=== PATIENT | male | born 1975 | race Caucasian/White ===

== ENCOUNTER 2025-02-23 13:19 | Outpatient (CLI) | payer BC, SELFPAY ==
--- NOTE | 2025-02-23 13:40 | XR_ITS ---
PROCEDURE INFORMATION: Exam: XR Chest Exam date and time: 02/23/2025 1:42 PM Age: 49 years old Clinical indication: Chest wall pain; Additional info: Costochondritis. Fall, pain on left anterior lower chest wall TECHNIQUE: Imaging protocol: Radiologic exam of the chest. Views: 2 views. PA and Lateral COMPARISON: No relevant prior studies available. FINDINGS: Tubes, catheters and devices: None. Lungs: Evidence for calcified lung granuloma in the left chest. The lungs appear otherwise clear without pulmonary venous congestion. Pleural spaces: No pleural effusion. No pneumothorax. Heart/Mediastinum: Left hilar, mediastinum calcified lymph nodes. The mediastinum appears otherwise unremarkable. Bones/joints: No acute bony abnormality identified. IMPRESSION: No evidence for an acute cardiopulmonary process.
== END 2025-02-23 23:59 | disposition home or self-care (01) ==
LOC: RAD 13:24
PROVIDERS: PCP Nurse Practitioner Family; Visit Provider Physician Assistant
DX: R07.89 Other chest pain (principal)
CPT/HCPCS: 71046

== ENCOUNTER 2025-07-12 09:31 | Emergency (ER) | payer BC, SELFPAY ==
--- OUTSIDE RECORDS SUMMARY | 2025-07-08 15:45 | XMS_ITS | Encounter Summary ---
[facility] Address [address] [place] [address] Care Team Providers Care Support Coordinator Name Role Phone Lizz Cotton APRN Primary Care Provider Reason for Visit * Reason Comments Hypertension Atrial Fibrillation Encounter Details Date Type Department Care Team (Late st Contact Info) Description 07/08/2025 3:45 PM EDT Office Visit [facility] CARDIOLOG[facility] [address] [facility] [place] [address] [place] [address] Terell Julio MD [address] [place] [address] Primary hypertension (Primary Dx); Mixed hyperlipidemia; Palpitations Social History Tobacco Use Types Packs/Day Years Used Date Smoking Tobacco: Former Cigarettes Q uit: 11/13/2013 Passive Smoke Exposure: Past Smokeless Tobacco: Never Comments:vape Alcohol Use Standard Drinks/Week Comments Not Currently 0 (1 standard drink = 0.6 oz pur e alcohol) quit in 2018 PHQ-2 Answer Date Recorded Retired PHQ-9: Brief Depression Severity Measure Score 0 12/11/2022 PHQ-2 Answer Date Recorded Retired PHQ-9: Brief Depression Severity Measure Score 0 12/11/2022 Sex and Gender Information Value Date Recorded Sex Assigned at Not on file Legal Sex Male 12:00 PM EDT Gender Identity Not on file Sexual Orientation Not on file Travel History Travel Start Travel End [place] 06/07/2025 07/08/2025 documented as of this encounter Last Filed Vital Signs Vital Sign Reading Time Taken Comments Blood Pressure 132/76 07/08/2025 3:49 PM EDT Pulse 97 07/08/2025 3:49 PM EDT Temperature - - Respiratory Rate - - Oxygen Saturation 99% 07/08/2025 3:49 PM EDT Inhaled Oxygen Concentration - - Weight 79.2 kg (174 lb 8 oz) 07/08/2025 3:49 PM EDT Height 172.7 cm (5' 8 ) 07/08/2025 3:49 PM EDT Body Mass Index 26.53 07/08/2025 3:49 PM EDT documented in this encounter Progress Notes * Terell Julio MD - 07/08/2025 3:45 PM EDT [facility] Cardiology Consultation H&P Atilio Brody Andrey [address] [place] [address] VISIT DATE: 07/08/25 PCP: Lizz Cotton, [place] [address] [facility] [address] [facility] [address] IDENTIFICATION: A 50 y.o. male [employer] employee Previous [employer] patient PROBLEM LIST: Paroxysmal Atrial fibrillation 2009 per [facility]. Diltiazem. 12/30 ([facility]) stress echocardiogram [facility]: Echocardiogram shows baseline normal heart structure (mild concentric LVH). No evidence of myocardial ischemia per echo/ekg criteria. 04/04 echo EF 60% IR Hyperlipidemia 01/01 195/134/36/135 Nicotine addiction- vaping Significant family history of CAD/MA in mother - 30s Father had multiple MIs. GERD Diverticulosis covid 19 09/03 not hospitalized- anorexia following CC: Chief Complaint Patient presents with Hypertension Atrial Fibrillation Allergies Allergies Allergen Reactions Azithromycin Other (See Comments) Childhood Erythromycin Base Other (See Comments) Childhood Pravastatin Other (See Comments) Muscle cramp Current Medications Current Outpatient Medications: aspirin 81 MG EC tablet, Take 1 tablet by mouth Daily., Disp: , Rfl: buPROPion XL (WELLBUTRIN XL) 300 MG 24 hr tablet, Take 1 tablet by mouth Every Morning., Disp: 90 tablet, Rfl: 3 dilTIAZem CD (Cartia XT) 180 MG 24 hr capsule, Take 1 capsule by mouth Daily., Disp: 90 capsule, Rfl: 3 Magnesium Oxide -Mg Supplement 400 (240 Mg) MG tablet, TAKE 1 TABLET BY MOUTH DAILY, Disp: 90 tablet, Rfl: 0 pantoprazole (PROTONIX) 40 MG EC tablet, TAKE 1 TABLET BY MOUTH DAILY, Disp: 90 tablet, Rfl: 1 History of Present Illness HPI Atilio Balderas is a 50 y.o. year old male with the above mentioned PMH who presents for follow-up. Had a viral illness recently No cardiac sxs Vitals: 07/08/25 1549 BP: 132/76 BP Location: Left arm Patient Position: Sitting Cuff Size: Adult Pulse: 97 SpO2: 99% Weight: 79.2 kg (174 lb 8 oz) Height: 172.7 cm (68 ) Body mass index is 26.53 kg/m??. PHYSICAL EXAMINATION: Constitutional: Appearance: Healthy appearance. Not in distress. Neck: Vascular: No JVR. JVD normal. Pulmonary: Effort: Pulmonary effort is normal. Breath sounds: Normal breath sounds. No wheezing. No rhonchi. No rales. Chest: Chest wall: Not tender to palpatation. Cardiovascular: PMI at left midclavicular line. Normal rate. Regular rhythm. Normal S1. Normal S2. Murmurs: There is a scratchy mid to late systolic murmur. No gallop. No click. No rub. Pulses: Intact distal pulses. Edema: Peripheral edema absent. Abdominal: General: Bowel sounds are normal. Palpations: Abdomen is soft. Tenderness: There is no abdominal tenderness. Musculoskeletal: Normal range of motion. General: No tenderness. Skin: General: Skin is warm and dry. Neurological: General: No focal deficit present. Mental Status: Alert and oriented to person, place and time. Diagnostic Data: Procedures Lab Results Component Value Date CHLPL 195 12/20/2020 TRIG 134 12/20/2020 HDL 36 (L) 12/20/2020 Lab Results Component Value Date GLUCOSE 101 (H) 09/12/2022 BUN 16 09/12/2022 CREATININE 1.15 09/12/2022 NA 142 09/12/2022 K 4.2 09/12/2022 CL 106 09/12/2022 CO2 23 09/12/2022 Lab Results Component Value Date HGBA1C 5.6 12/20/2020 Lab Results Component Value Date WBC 4.8 09/12/2022 HGB 13.8 09/12/2022 HCT 40.4 09/12/2022 PLT 230 09/12/2022 ASSESSMENT: Diagnosis Plan 1. Primary hypertension 2. Mixed hyperlipidemia 3. Palpitations PLAN: Hypertension controlled currently diltiazem he will need to follow his blood pressure at least weekly PACs on concomitant protonix with equivocal history of atrial fibrillation would recommend blood pressure control and magnesium supplementation Mixed dyslipidemia would recommend cardiac calcium scoring No ref. provider found, thank you for referring Mr. Balderas for evaluation. I have forwarded my electronically generated recommendations to you for review. Please do not hesitate to call with any questions. Terell Julio MD, [facility] documented in this encounter Plan of Treatment Upcoming Encounters Date Type Department Care Team (Late st Contact Info) Description 11/24/2026 3:30 PM EST Office Visit [facility] C[facility]IOLOG[facility] [address] [facility] [place] [address] Terell Julio MD [facility] [place] [id number] documented as of this encounter Visit Diagnoses Diagnosis Primary hypertension- Primary Unspecified essential hypertension Mixed hyperlipidemia Palpitations documented in this encounter Care Teams Support Coordinator Relationship Specialty Start Date End Date Lizz Cotton APRN [address] [facility] [address] [place] [address] PCP - General Nurse Practitioner 07/08/25 documented as of this encounter
[2025-07-12 09:33] VITALS: BP 145/94; PULSE 84; RESP 17; TEMP 37.3; O2SAT 97; BMI 25.8
--- OUTSIDE RECORDS SUMMARY | 2025-07-12 10:07 | XMS_ITS | Encounter Summary ---
Author Organization [facility] Address [address] [place] [address] Care Team Providers Care Imaging Analyst Name Role Phone Lizz Cotton Y[place] Primary Care Provider [phone] Encounter Details Date Type Department Care Team (Latest Contact Info) Description 07/08/2025 Travel Social History Tobacco Use Types Packs/Day Years [...] file Travel History Travel Start Travel End [place] 06/07/2025 07/08/2025 documented as of this encounter Plan of Treatment Upcoming Encounters Date Type Department Care Team (Late st Contact Info) Description 11/24/2026 3:30 PM EST Office Visit [facility] CARDIOLOGY [address] [facility] [place] [address] Terell Julio MD [address] [facility] [address] [place] [address] documented as of this encounter Visit Diagnoses Not on filedocumented in this encounter Care Teams Imaging Analyst Relationship Specialty Start Date End Date Lizz Cotton APRN [address] [place] [address] PCP - General Nurse Practitioner 07/08/25 documented as of this encounter
--- OUTSIDE RECORDS SUMMARY | 2025-07-12 10:07 | XMS_ITS | Encounter Summary ---
[facility] Address [address] [place] [address] Care Team Providers Care Curator Name Role Phone Lizz Cotton Y[place] Primary Care Provider [phone] Reason for Visit * Reason Comments Med Refill Encounter Details Date Type Department Care Team (Late st Contact Info) Description 02/15/2025 Refill [facility] [address] [place] [address] Brenda Núñez PA [address] [place] [address] Atrial fibrillation, unspecified type Social History Tobacco Use Types Packs/Day Years [...] file Travel History Travel Start Travel End [place] 06/07/2025 07/08/2025 documented as of this encounter Miscellaneous Notes * Telephone Encounter - Nasrin Jenkins RegSched Rep - 02/17/2025 9:23 AM EDT SPOKE WITH PATIENT, HE STATED THAT THE REQUESTED MEDICATION ISNT PRESCRIBED BY BRENDA AND THE HE ISNO LONGER A PATIENT WITH THIS OFFICE documented in this encounter Plan of Treatment Upcoming Encounters Date Type Department Care Team (Late st Contact Info) Description 11/24/2026 3:30 PM EST Office Visit [facility] CARDIOLOGY [address] [place] [address] [place] [address] Terell Julio MD [address] [facility] [address] [facility] [address] [place] [address] documented as of this encounter Visit Diagnoses Diagnosis Atrial fibrillation, unspecified type documented in this encounter Care Teams Curator Relationship Specialty Start Date End Date Lizz Cotton APRN [address] [place] [address] [address] [place] [address] PCP - General Nurse Practitioner 07/08/25 documented as of this encounter
--- OUTSIDE RECORDS SUMMARY | 2025-07-12 10:07 | XMS_ITS | Clinical Summary ---
[facility] Address [address] [place] [address] Care Team Providers Care Health Insurance Agent Name Role Phone Lizz Cotton [place] Primary Care Provider [phone] Allergies Active Allergy Reactions Criticality Noted Date Comments Azithromycin Other (See Comments) 10/28/2014 Childhood Erythromycin Base Other (See Comments) 12/15/19 Childhood Pravastatin Other (See Comments) 12/14/2020 Muscle cramp Medications aspirin 81 MG EC tablet Take 1 tablet by mouth Daily. Active buPROPion XL (WELLBUTRIN XL) 300 MG 24 hr tabletIndication s:Depression with anxiety Take 1 tablet by mouth Every Morning. 90 tablet 3 06/10/2023 Active dilTIAZem CD (Cartia XT) 180 MG 24 hr capsuleIndicatio ns:Atrial fibrillation, unspecified type Take 1 capsule by mouth Daily. 90 capsule 3 06/10/2023 Active pantoprazole (PROTONIX) 40 MG EC tabletIndication s:Gastroesophage al reflux disease, unspecified whether esophagitis present TAKE 1 TABLET BY MOUTH DAILY 90 tablet 1 09/07/2023 Active Magnesium Oxide -Mg Supplement 400 (240 Mg) MG tablet TAKE 1 TABLET BY MOUTH DAILY 90 tablet 04/06/2024 Active Active Problems Problem Noted Date Diagnosed Date Atrial fibrillation 12/14/2020 Gastroesophageal reflux disease 12/14/2020 Depression with anxiety 12/14/2020 Encounters Date Type Department Care Team Description 07/08/2025 3:45 PM EDT Office Visit [facility] CARDIOLOGY [address] [facility] [place] [address] Terell Julio MD Primary hypertension (Primary Dx); Mixed hyperlipidemia; Palpitations 07/08/2025 Travel 2025 Travel from Last 3 Months Immunizations Immunization Administration Dates Next Due Tdap 10/05/2017 Family History Medical History Relation Name Comments Heart disease Brother Heart attack Father Heart disease Father Heart failure Father Hypertension Father Heart attack Mother Hyperlipidemia Mother Hypertension Mother Relation Name Status Comments Brother Alive Father Mother Social History Tobacco Use Types Packs/Day Years Used Date Smoking Tobacco: Former Cigarettes Q uit: 11/13/2013 Passive Smoke Exposure: Past Smokeless Tobacco: Never Tobacco Cessation:Counseling Given: Not Answered Comments:vape Alcohol Use Standard Drinks/Week Comments Not [...] file Travel History Travel Start Travel End [place] 06/07/2025 07/08/2025 Last Filed Vital Signs Vital Sign Reading Time Taken Comments Blood Pressure 132/76 07/08/2025 3:49 PM EDT Pulse 97 07/08/2025 3:49 PM EDT Temperature 36.5 C (97.7 F) 06/10/2023 11:32 AM EDT Respiratory Rate 16 06/10/2023 11:32 AM EDT Oxygen Saturation 99% 07/08/2025 3:49 PM EDT Inhaled Oxygen Concentration - - Weight 79.2 kg (174 lb 8 oz) 07/08/2025 3:49 PM EDT Height 172.7 cm (5' 8 ) 07/08/2025 3:49 PM EDT Body Mass Index 26.53 07/08/2025 3:49 PM EDT Plan of Treatment Upcoming Encounters Date Type Department Care Team (Late st Contact Info) Description 11/24/2026 3:30 PM EST Office Visit [facility] CARDIOLOGY [address] [place] [address] Terell Julio MD [address] [facility] [address] [place] [address] Health Maintenance Due Date Last Done Comments COLOGUARD 2022 10/14/2016 COLON CANCER SCREENING 5 YEA R SIGMOIDOSCOPY 20[address] CT COLONOGRAPHY 2022 FECAL OCCULT BLOOD TEST 2022 FIT Testing (1 year) 2022 ANNUAL PHYSICAL 06/12/2023 06/12/2022 LIPID PANEL 06/06/2024 06/06/2023, 05/29/2022, 12/20/2020 INFLUENZA VACCINE 05/14/2025 COLONOSCOPY 10/14/2026 10/14/2016 (Patient-Reported (Performed Externally)) COLORECTAL CANCER SCREENING 10/14/2026 TDAP/TD VACCINES (2 - Td or Tdap) 10/05/2027 10/05/2017 HEPATITIS C SCREENING Completed 06/12/2022 Pneumococcal Vaccine 0-49 Aged Out No longer eligible based on patient's age to complete this topic Procedures Procedure Name Priority Date/Time Associated Diagnosis Comments HEPATITIS C ANTIBODY Routine 06/12/2022 8:56 AM EDT Encounter for well adult exam without abnormal findings Need for hepatitis C screening test LIPID PANEL Routine 12/20/2020 12:14 PM EST Encounter for lipid screening for cardiovascular disease from Last 3 Months or Most Recently Relevant to Health Maintenance Results * Hepatitis C antibody (06/12/2022 8:56 AM EDT) Hep C Virus Ab <0.1 0.0 - 0.9 s/co ratio [facility] Comment: Negative: < 0.8 Indeterminate: 0.8 - 0.9 Positive: > 0.9 HCV antibody alone does not differentiate between previous resolved infection and active infection. The CDC and current clinical guidelines recommend that a positive HCV antibody result be followed up with an HCV RNA test to support the diagnosis of acute HCV infection. [facility] offers Hepatitis C Virus (HCV) RNA, Diagnosis, JOSY (374901) and Hepatitis C Virus (HCV) Antibody with reflex to Quantitative Real-time PCR (390270). Blood 06/12/2022 8:56 AM EDT 06/12/2022 Narrative [facility] (AMBUL[facility]) - 06/13/2022 9:11 AM EDT Performed at: 02 - [address] [id number] Machine Sole Leveler: Alfa Kaufman PhD, Phone: [phone] Amanda [facility] BLOOD ORDERABLES Final Res ult Performing Organization Address [facility]/ZIP Co de Phone Number [facility] [address] [place] [address], [place] [phone] [facility] [address] [place] [address], [place] [phone] * (ABNORMAL) Lipid Panel (12/20/2020 12:14 PM EST) [facility] Total Cholesterol 195 100 - 199 mg/dL [facility] Triglycerides 134 0 - 149 mg/dL [facility] HDL Cholesterol 36(L) >39 mg/dL [facility] VLDL Cholesterol [place] 24 5 - 40 mg/dL [facility] LDL Chol Calc (NIH) 135(H) 0 - 99 mg/dL [facility] Blood 12/20/2020 12:1 4 PM EST 12/20/2020 Narrative [facility] (AMBULATORY) - 12/21/2020 6:09 AM EST Performed at: - [address] [id number] Machine Sole Leveler: Alfa Kaufman PhD, Phone: [phone] Patient Fasting: Y Amanda [facility] BLOOD ORDERABLES Final Res ult Performing Organization Address [facility]/ZIP Co de Phone Number [facility] [address] [place] [address], [place] [phone] [facility] [address] [place] [address], [place] [phone] from Last 3 Months or Most Recently Relevant to Health Maintenance Insurance [facility] PPO Care Teams Health Insurance Agent Relationship Specialty Start Date End Date Lizz Cotton APRN [address] [address] PCP - General Nurse Practitioner 07/08/25
--- OUTSIDE RECORDS SUMMARY | 2025-07-12 10:07 | XMS_ITS | Encounter Summary ---
Author Organization [facility] Address [address] [place] [address] Care Team Providers Care Commercial Accountant Name Role Phone Lizz Cotton [place] Primary Care Provider [phone] Reason for Visit * Reason Comments Med Refill Encounter Details Date Type Department Care Team (Late Contact Info) Description 2023 Refill [facility] [address] [place] [address] Amanda Núñez PA [address] [place] [address] Gastroesophageal reflux disease, unspecified whether esophagitis present; Primary hypertension Social History Tobacco Use Types Packs/Day Years [...] Start Travel End [place] 06/07/2025 07/08/2025 documented as of this encounter Plan of Treatment Upcoming Encounters Date Type Department Care Team (Late st Contact Info) Description 11/24/2026 3:30 PM EST Office Visit [facility] C[facility]IOLOG[facility] [address] [place] [address] Terell Julio MD [address] [facility] [address] [place] [address] documented as of this encounter Visit Diagnoses Diagnosis Gastroesophageal reflux disease, unspecified whether esophagitis present Primary hypertension Unspecified essential hypertension documented in this encounter Care Teams Commercial Accountant Relationship Specialty Start Date End Date Lizz Cotton APRN [address] [facility] [address] [place] [address] PCP - General Nurse Practitioner 07/08/25 documented as of this encounter
--- OUTSIDE RECORDS SUMMARY | 2025-07-12 10:07 | XMS_ITS | Encounter Summary ---
[facility] Address [address] [place] [address] Care Team Providers Care Certified Ethical Hacker Name Role Phone Amanda Núñez Primary Care Provider [phone] Encounter Details Date Type Department Care Team (Latest Contact Info) Description 2025 Travel Social History Tobacco Use Types Packs/Day [...] Travel History Travel Start Travel End [place] 06/07/2025 07/08/2025 documented as of this encounter Plan of Treatment Upcoming Encounters Date Type Department Care Team (Late st Contact Info) Description 11/24/2026 3:30 PM EST Office Visit [facility] [address] [facility] [place] [address] Terell Julio MD [address] [facility] [address] [place] [address] documented as of this encounter Visit Diagnoses Not on filedocumented in this encounter Care Teams Certified Ethical Hacker Relationship Specialty Start Date End Date Amanda Núñez PA [address] [place] [address] PCP - General Physician Profiling Machine Operator 12/09/20 07/07/25 documented as of this encounter
--- NOTE | 2025-07-12 10:10 | ED_ITS ---
<Statement entered by Robyn Huerta DO - 07/12/25 15:43> I was consulted by the MIKE, and we discussed the complexity of problems being addressed. I approved the treatment plan and management plan of this patient's care in the emergency department, thus performing a substantive portion of medical decision making. Robyn Huerta DO Discharge Plan Disposition Patient Disposition: Home, Self-Care Condition: Good Prescriptions Prescriptions: New amoxicillin-pot clavulanate 875-125 mg tablet 1 tab PO BID 10 Days Qty: 20 0RF ondansetron HCl 4 mg tablet 4 mg PO DAILY Qty: 30 0RF Referrals Follow up/Referrals: Lizz Maynard APRN [Primary Care Provider, Medical] - See instructions Activity Restrictions/Add. Instructions Additional Instructions/Restrictions: Please return to the emergency department with any worsening signs or symptoms. Please take your antibiotic as prescribed, please use your antinausea medicine as prescribed. Please continue with good oral intake of fluids and solids. Please follow-up with your family doctor in the upcoming days. Clinical Impressions Clinical Impression: Acute sinusitis, Nausea & vomiting Instructions Patient Instructions: DI for Sinusitis, DI for Nausea -- Adult Print Language Print Language: Czech Discharge ED Provider: Robyn Huerta General Adult HPI <LILI Ornelas - Last Filed: 07/12/25 13:26> General Chief complaint: Nausea/Vomiting/Diarrhea Stated complaint: headache, N/V, cough, fever, insomnia, constipatio Time Seen by Provider: 07/12/25 10:10 Mode of Arrival: Ambulatory Source of Information: Patient Limitations: No Limitations History of Present Illness HPI narrative: 50-year-old male presents to the emergency department with multiple complaints. Most significant being nausea vomiting and constipation for the last 5 days, patient states around June 25 , he was told he had a upper respiratory infection, he had fever chills fatigue cough congestion, rhinorrhea, she says this is improved, but only slightly, patient states he visit his primary care provider on June 28, and was told it was probably viral, did not have rapid antigen swabs obtained at that time. Patient states he also has had some subjective weight loss over the last several months, not intentional, patient states poor appetite, for the last 4 to 5 days, last bowel movement was this morning, except for he said it was small , he admits to low-grade fevers , recorded Tmax around a week ago was around 101 ?F . Patient denies any overt chest pain or shortness of breath, does have a productive cough, denies any real abdominal pain, but tells me I have diverticulitis and this, feels like that without the pain , denies any hematuria melena hematochezia hematemesis, or hemoptysis, admits to sinus pressure, and headache that has waxed and waned and worsened over the last several weeks, patient denies any lightheadedness, no dizziness, no urinary type symptomatology, patient is a non-smoker, denies any alcohol or drug use, other past medical history is consistent with diverticulosis, atrial fibrillation, GERD, MDD/SHAYLA otherwise unremarkable past medical history. Initial triage vitals are unremarkable. Please note that above description of symptoms, in this electronic medical record under categorization of recalled from ER triage doctor by RN are reflective of an initial nursing assessment, however, is not reflective of my full history and physical exam that was personally taken and clarified. Consequentially, this preceding description of symptoms, which may include the patient's categorized chief complaint in the EMR, do not reflect my personal clinical impression, and the ultimate description of history of present illness and patient stated complaints should be deferred to this section of the note. Unless stated otherwise or congruent with this section of the note, additional signs, symptoms, or incongruence should be interpreted as inaccurate with my clinical impression. Onset (ago): week(s) Related Data Previous Rx's ?Medication ?Instructions ?Recorded amoxicillin 875 mg-potassium 1 tab PO BID 10 days #20 tabs 07/12/25 clavulanate 125 mg tablet ondansetron HCl 4 mg tablet 4 mg PO DAILY #30 tabs Allergies Allergy/AdvReac Type Severity Reaction Status Date / Time erythromycin base (From Allergy Hives Verified 07/12/25 10:55 E-Mycin) [facility] <LILI Ornelas - Last Filed: 07/12/25 13:26> [facility] Disclaimer: The information contained in this section may have been updated after the patient was seen, as this information can be updated by other users. Social History (Updated 07/12/25 @ 13:26 by LILI Ornelas) Smoking Status: Unknown if ever smoked alcohol intake: never current occupational status: other Travel in the last 8 weeks?: None Have you lived/traveled outside [place] in past 30 days?: No Contact w/someone who lives/traveled outside US past 30 days?: No Exposure to someone with infectious disease in past 14 days?: No Do you have a fever (greater than 100.4 F or 38 C)?: No Have you tested positive for COVID-19?: No Exposed to someone with COVID-19 in past 14 days?: No Do you have a sore throat?: No Do you have a cough?: No Do you have any weakness?: No Do you have any diarrhea?: No Are you experiencing any unusual bleeding?: No Do you have any muscle aches/pain?: No Do you have any abdominal pain?: No Are you experiencing loss of taste or smell?: No <LILI Ornelas - Last Filed: 07/12/25 13:26> ROS Obtained: Yes All systems reviewed & no additional complaints except as documented Physical Exam <LILI Ornelas - Last Filed: 07/12/25 13:26> General General appearance: alert and in no apparent distress Head Head exam: atraumatic and normocephalic Eye Eye exam: Present PERRL and EOMI ENT ENT exam: Present mucous membranes moist and other (Pain to palpation over the frontal and maxillary sinuses) Neck Neck exam: Present normal inspection Chest Chest inspection: Present normal inspection and symmetric chest wall rise Respiratory Respiratory exam: Present normal lung sounds bilaterally; Absent respiratory distress Cardiovascular Cardiovascular exam: Present regular rate and normal rhythm Abdominal Exam Abdominal exam: Present soft; Absent tenderness, guarding, rebound or rigidity Extremities Exam Extremities exam: Present normal inspection Neurological Exam Neurological exam: Present alert and oriented X3 Psychiatric Psychiatric exam: Present normal affect Skin Skin exam: Present warm and dry Medical Decision Making <LILI Ornelas - Last Filed: 07/12/25 13:26> Medical Records Medical records reviewed: Yes I reviewed the patient's medical records. Screening: Per USPSTF and CDC recommendations, given the prevalence of disease in our region, it is our hospital?s policy to screen for HIV and viral Hepatitis for all patients aged 18 and over and those with ongoing risk factors. Law Inquiry Pt receiving controlled substance: No Law was queried for this patient: No Vital Signs: 07/12/25 09:33 07/12/25 13:30 Temperature 99.2 F 98 F Temperature Source Oral Pulse Rate 80 Pulse Rate [Left Radial] 84 Respiratory Rate 17 20 Blood Pressure 148/90 H Blood Pressure [Right Arm] 145/94 H Blood Pressure Mean [Right Arm] 111 Blood Pressure Source [Right Arm] Automatic Cuff Blood Pressure Position [Right Arm] Sitting 02 Sat by Pulse Oximetry 97 Oxygen Delivery Method Room Air Room Air Lab Data Lab results reviewed: Yes I reviewed the patient's lab results. Lab Results 07/12/25 11:00: WBC 11.9 H, RBC 3.98 L, Hgb 11.9 L, Hct 33.7 L, MCV 84.7, MCH 29.9, MCHC 35.3, RDW 12.9, Plt Count 311, MPV 9.6, Neut % (Auto) 87.3 H, Lymph % (Auto) 7.0 L, Bee % (Auto) 5.1, Eos % (Auto) 0.0 L, Baso % (Auto) 0.3, Neut # (Auto) 10.3 H, Lymph # (Auto) 0.8, Bee # (Auto) 0.6, Eos # (Auto) 0.0, Baso # (Auto) 0.0, Sodium 134 L, Potassium 3.6, Chloride 100, Carbon Dioxide 25, Anion Gap 12.6, BUN 14, Creatinine 0.80, Estimated Creat Clear 123, Estimated GFR 103, Est GFR ( Amer) 125, Glucose 116 H, Calcium 9.1, Magnesium 2.0, Total Bilirubin 0.8, AST 43, ALT 51, Alkaline Phosphatase 58, Troponin I < 0.01, NT-Pro-B Natriuret Pep 87.6, Total Protein 6.9, Albumin 3.8, Globulin 3.1, Albumin/Globulin Ratio 1.2, Lipase 19 L 07/12/25 11:52: Urine Color [place], Urine Appearance Clear, Urine pH 6.0, Ur Specific [place] 1.025, Urine Protein 1+ A, Urine Glucose (UA) Negative, Urine Ketones 3+, Urine Blood Negative, Urine Nitrate Negative, Urine Bilirubin 1+ A, Urine Urobilinogen 2.0, Ur Leukocyte Esterase Negative, Urine RBC None, Urine WBC None, Ur Squamous Epith Cells Occasional, Urine Bacteria None 07/12/25 11:00 07/12/25 11:00 Orders (Tests/Meds): ED MEDICATIONS Discontinued Medications Generic Name Dose Route Start Last Admin Trade Name Yosvany PRN Reason Stop Dose Admin Lactated Ringer's 1,000 mls @ 999 mls/hr 07/12/25 10:18 07/12/25 12:29 Lactated Ringer's 1000 Ml Bag IV 07/12/25 11:18 Infused .Q1H1M ONE Infusion Iopamidol 75 ml 07/12/25 12:00 07/12/25 12:00 Iopamidol-370 (76%);100ml Bottle IV 07/12/25 12:01 75 ml ONCE ONE Administration Ondansetron HCl 4 mg 07/12/25 10:18 07/12/25 10:58 Ondansetron 4mg/2ml Vial IV 07/12/25 10:19 4 mg ONCE ONE Administration Sodium Chloride 10 ml 07/12/25 12:00 07/12/25 12:00 Sodium Chloride 0.9% 10ml Syr (Rad Only) IV 07/12/25 12:01 10 ml ONCE ONE Administration ORDERS Category Date Time Status CT abdomen pelvis w con Stat Cat Scan 07/12/25 10:[address] head/brain wo con Stat Cat Scan 07/12/25 10:18 Completed XR chest portable Stat Exams 07/12/25 10:17 Completed Complete Blood Count Auto Diff Stat Lab 07/12/25 11:00 Completed Comprehensive Metabolic Panel Stat Lab 07/12/25 11:00 Completed Lipase Stat Lab 07/12/25 11:00 Completed Magnesium Stat Lab 07/12/25 11:00 Completed NT Pro Brain Natriuretic Pep. Stat Lab 07/12/25 11:00 Completed Troponin I Stat Lab 07/12/25 11:00 Completed Urinalysis and Microscopic Stat Lab 07/12/25 11:52 Completed Medical Decision Narrative: 50-year-old male presents to the emergency department multiple complaints, see HPI for detailed past medical history, differential diagnose include but not limited to, cardiac arrhythmia, electrolyte disturbance, hypovolemia, pneumonia, acute bronchitis, malignancy, diverticulitis, gastroenteritis, bowel obstruction, constipation, acute kidney injury among others. I discussed this patient's case with the attending physician Dr. Huerta Will obtain basic laboratory studies, EKG, proBNP, troponin, lactic acid, lipase level, magnesium level, UA, will obtain CT head without contrast, CT and pelvis with contrast, chest x-ray for further evaluation/characterization, will give 4 mg IV Zofran for nausea and 1 L LR IV for fluid replacement. CBC is noted for mild leukocytosis at 11.9, hemoglobin hematocrit are mildly decreased 11.9/33.7, unsure of baseline CMP is notable for normal troponin, normal lipase, normal proBNP UA is notable 1+ proteinuria, 3+ ketonuria, negative nitrites negative leukocyte esterase, 1+ bilirubin. I reviewed the patient's CT head without contrast along the corresponding radiologic report, no acute intracranial process, acute on chronic pansinusitis I reviewed the patient's CT abdomen pelvis with contrast along the corresponding radiologic report, small sliding-type hiatal hernia. No acute intra-abdominal process. I reviewed the patient's chest x-ray along the corresponding radiologic report, no acute cardiopulmonary process. I discussed the results with the patient at the bedside, patient states he is feeling better after IV fluid and IV antiemetic administration, patient most likely has acute sinusitis his symptomatology is been going on for over 10 to 14 days, thus will treat with p.o. antibiotic Augmentin 875 mg p.o. twice daily for 10 days, as well as 4 mg p.o. Zofran as needed for nausea. Patient was given strict ED return precautions, recommend good intake of p.o. fluids. Patient voiced understanding and agreement with current treatment plan/discharge plan. <Robyn Huerta, DO - Last Filed: 07/12/25 15:44> Vital Signs: 07/12/25 09:33 07/12/25 13:30 Temperature 99.2 F 98 F Temperature Source Oral Pulse Rate 80 Pulse Rate [Left Radial] 84 Respiratory Rate 17 20 Blood Pressure 148/90 H Blood Pressure [Right Arm] 145/94 H Blood Pressure Mean [Right Arm] 111 Blood Pressure Source [Right Arm] Automatic Cuff Blood Pressure Position [Right Arm] Sitting 02 Sat by Pulse Oximetry 97 Oxygen Delivery Method Room Air Room Air Lab Data Lab Results 07/12/25 11:00: WBC 11.9 H, RBC 3.98 L, Hgb 11.9 L, Hct 33.7 L, MCV 84.7, MCH 29.9, MCHC 35.3, RDW 12.9, Plt Count 311, MPV 9.6, Neut % (Auto) 87.3 H, Lymph % (Auto) 7.0 L, Bee % (Auto) 5.1, Eos % (Auto) 0.0 L, Baso % (Auto) 0.3, Neut # (Auto) 10.3 H, Lymph # (Auto) 0.8, Bee # (Auto) 0.6, Eos # (Auto) 0.0, Baso # (Auto) 0.0, Sodium 134 L, Potassium 3.6, Chloride 100, Carbon Dioxide 25, Anion Gap 12.6, BUN 14, Creatinine 0.80, Estimated Creat Clear 123, Estimated GFR 103, Est GFR ( Amer) 125, Glucose 116 H, Calcium 9.1, Magnesium 2.0, Total Bilirubin 0.8, AST 43, ALT 51, Alkaline Phosphatase 58, Troponin I < 0.01, NT-Pro-B Natriuret Pep 87.6, Total Protein 6.9, Albumin 3.8, Globulin 3.1, Albumin/Globulin Ratio 1.2, Lipase 19 L 07/12/25 11:52: Urine Color [place], Urine Appearance Clear, Urine pH 6.0, Ur Specific [place] 1.025, Urine Protein 1+ A, Urine Glucose (UA) Negative, Urine Ketones 3+, Urine Blood Negative, Urine Nitrate Negative, Urine Bilirubin 1+ A, Urine Urobilinogen 2.0, Ur Leukocyte Esterase Negative, Urine RBC None, Urine WBC None, Ur Squamous Epith Cells Occasional, Urine Bacteria None Orders (Tests/Meds): ED MEDICATIONS Discontinued Medications Generic Name Dose Route Start Last Admin Trade Name Freq PRN Reason Stop Dose Admin Lactated Ringer's 1,000 mls @ 999 mls/hr 07/12/25 10:18 07/12/25 12:29 Lactated Ringer's 1000 Ml Bag IV 07/12/25 11:18 Infused .Q1H1M ONE Infusion Iopamidol 75 ml 07/12/25 12:00 07/12/25 12:00 Iopamidol-370 (76%);100ml Bottle IV 07/12/25 12:01 75 ml ONCE ONE Administration Ondansetron HCl 4 mg 07/12/25 10:18 07/12/25 10:58 Ondansetron 4mg/2ml Vial IV 07/12/25 10:19 4 mg ONCE ONE Administration Sodium Chloride 10 ml 07/12/25 12:00 07/12/25 12:00 Sodium Chloride 0.9% 10ml Syr (Rad Only) IV 07/12/25 12:01 10 ml ONCE ONE Administration ORDERS Category Date Time Status CT abdomen pelvis w con Stat Cat Scan 07/12/25 10:[address] head/brain wo con Stat Cat Scan 07/12/25 10:18 Completed XR chest portable Stat Exams 07/12/25 10:17 Completed Complete Blood Count Auto Diff Stat Lab 07/12/25 11:00 Completed Comprehensive Metabolic Panel Stat Lab 07/12/25 11:00 Completed Lipase Stat Lab 07/12/25 11:00 Completed Magnesium Stat Lab 07/12/25 11:00 Completed NT Pro Brain Natriuretic Pep. Stat Lab 07/12/25 11:00 Completed Troponin I Stat Lab 07/12/25 11:00 Completed Urinalysis and Microscopic Stat Lab 07/12/25 11:52 Completed ECG Data Tracing #1: Normal sinus rhythm at a rate of 78. Normal intervals. Normal axis. No acute ischemic changes. - Robyn Huerta, DO Critical Care <LILI Ornelas - Last Filed: 07/12/25 13:26> Critical Care Time Critical Care Time: No
--- NOTE | 2025-07-12 10:16 | CT_ITS ---
FINAL REPORT TECHNIQUE: After the administration of intravenous contrast, axial images were obtained through the abdomen and pelvis by computed tomography. The study was performed with techniques to keep radiation dose as low as reasonably achievable, (ALARA). Individual dose reduction techniques using automated exposure control or adjustment of mA and/or kV according to the patient's size were employed. CLINICAL HISTORY: Nausea vomiting constipation COMPARISON: none FINDINGS: Abdomen: The lung bases are clear. The liver parenchyma is homogeneous. The gallbladder is present. There is a tiny cyst adjacent to the gallbladder fossa measuring 7 mm. The spleen, pancreas, adrenals and kidneys appear unremarkable. There is a small sliding-type hiatal hernia. The aorta is normal in caliber. There is no free fluid or adenopathy. Pelvis: The appendix is unremarkable. The urinary bladder is contracted. There is no free fluid or adenopathy. IMPRESSION: No acute intra-abdominal process. Small sliding-type hiatal hernia. Reviewed, Interpreted and Dictated by Scar Cheng MD Transcribed by Baylee Andrade Authenticated and [facility]
--- NOTE | 2025-07-12 10:17 | XR_ITS ---
FINAL REPORT CLINICAL HISTORY: shortness of breath, fever chills COMPARISON: none FINDINGS: The heart size is normal. The mediastinum is normal. There is no focal infiltrate or edema. There are no pleural effusions. There is no pneumothorax. There is no osseous abnormality. IMPRESSION: No acute cardiopulmonary process Reviewed, Interpreted and Dictated by Scar Cheng MD Transcribed by Baylee Andrade Authenticated and [facility]
--- NOTE | 2025-07-12 10:18 | CT_ITS ---
FINAL REPORT TECHNIQUE: Axial CT images were performed through the head. Coronal reformatted images were submitted. This study was performed with techniques to keep radiation doses as low as reasonably achievable (ALARA). Individualized dose reduction techniques using automated exposure control or adjustment of mA and/or kV according to the patient's size were employed. CLINICAL HISTORY: Headache, weakness COMPARISON: none FINDINGS: The ventricles are normal in size. There is no evidence of hemorrhage. There is no mass or edema identified. There is no abnormal extra-axial fluid seen. There is near-complete opacification of the right maxillary sinus. Large air-fluid level is noted in the sphenoid. Extensive mucoperiosteal thickening is seen throughout the ethmoid air cells and left maxillary sinus. IMPRESSION: No acute intracranial process. Acute on chronic pansinusitis. Reviewed, Interpreted and Dictated by Scar Cheng MD Transcribed by Baylee Andrade Authenticated and [facility]
--- NOTE | 2025-07-12 10:37 | ECG_ITS ---
APPROVED REPORT Exam: Resting ECG HR:78 bpm ECG Measurements Heart Rate 78 AXES IN 179 P 49 QRSd 98 QRS 60 QT 362 T 43 QTc 395 Conclusion SINUS RHYTHM NORMAL ECG UNCONFIRMED REPORT Electronically signed by : ALEKSANDR MÉNDEZ, 07/12/2025 23:01:52
[2025-07-12] MEDS: ONDANSETRON 4MG/2ML VIAL 4 MG IV (10:58)
[2025-07-12] MEDS: LACTATED RINGERS 1000ML 1,000 ML 999 ML IV (10:58)
[2025-07-12 11:10] LABS: Hematocrit 33.7 % (42.0-52.0); Hemoglobin 11.9 g/dL (14.1-18.0); Immature Granulocytes % 0.3 %; Mean Corpuscular HGB Conc 35.3 g/dL (31.8-35.4); Mean Corpuscular Hemoglobin 29.9 pg (27.0-31.2); Mean Corpuscular Volume 84.7 fl (80-94); Nucleated Red Blood Cells % 0 %; Platelet Count 311 K/mm3 (142-424); Red Blood Count 3.98 M/mm3 (4.60-6.20); Red Cell Distribution Width-SD 40.3 fL; White Blood Count 11.9 K/mm3 (4.8-10.8)
[2025-07-12 11:15] LABS: Albumin Level 3.8 g/dl (3.5-5.0); Chloride 100 mmol/L (98-107); Sodium 134 mmol/L (136-145)
[2025-07-12 11:16] LABS: Potassium 3.6 mmoL/L (3.5-5.1)
[2025-07-12 11:18] LABS: Alanine Aminotransferase 51 U/L (12-78); Albumin/Globulin Ratio 1.2 (1.1-1.8); Alkaline Phosphatase 58 U/L (38-126); Anion Gap 12.6 mEq/L (5-15); Aspartate Amino Transferase 43 U/L (17-59); Bilirubin,Total 0.8 mg/dl (0.2-1.3); Blood Urea Nitrogen 14 mg/dl (9-20); Carbon Dioxide 25 mmol/L (22.0-30.0); Creatinine Clearance Estimated 123 mL/min (50-200); Creatinine,Serum 0.80 mg/dl (0.66-1.25); Estimated Glomerular Filt Rate 103 ml/min (>60); GFR (African American) 125 ML/MIN (>60); Globulin 3.1 g/dL (1.3-3.2); Total Protein,Serum 6.9 g/dl (6.3-8.2)
[2025-07-12 11:19] LABS: Calcium 9.1 mg/dl (8.4-10.2); Glucose 116 mg/dl (74-100); Lipase 19 U/L (23-300); Magnesium 2.0 mg/dl (1.6-2.3)
[2025-07-12 11:28] LABS: NT Pro Brain Natriuretic Pep. 87.6 pg/mL (0-125)
[2025-07-12 11:33] LABS: Troponin I < 0.01 ng/ml (0.00-0.034)
[2025-07-12 11:55] LABS: Microscopic, Urine URINE MICROSCOPIC (MICROSCOPIC)
[2025-07-12] MEDS: SODIUM CHLORIDE 0.9% 10ML SYR (RAD ONLY) 10 ML IV (12:00)
[2025-07-12] MEDS: IOPAMIDOL-370 (76%);100ML BOTTLE 75 ML IV (12:00)
[2025-07-12 12:31] LABS: Color,Urine ORANGE (Yellow); Glucose,Urine (UA) Negative (Negative); Ketones,Urine 3+ (Negative); Leukocyte Esterase,Urine Negative (Negative); PH,Urine 6.0 (5.0-8.5); Protein,Urine 1+ (Negative); Specific Gravity, Urine 1.025 (1.005-1.030); Urobilinogen,Urine 2.0 EU/dl (0.2)
[2025-07-12 12:35] LABS: Bilirubin,Urine 1+ (Negative)
[2025-07-12 13:00] LABS: Squamous Epithelial Cell,Urine Occasional #/hpf (0-5)
[2025-07-12 13:30] VITALS: BP 148/90; PULSE 80; RESP 20; TEMP 36.6; O2SAT 98
== END 2025-07-12 13:32 | disposition home or self-care (01) ==
PROVIDERS: Physician Assistant; Emergency Provider Student in an Organized Health Care Education/Training Program; PCP Nurse Practitioner Family
DX: J01.90 Acute sinusitis, unspecified (principal); R11.2 Nausea with vomiting, unspecified; R51.9 Headache, unspecified
CPT/HCPCS: 70450; 71045; 74177; 80053; 81001; 83690; 83735; 83880; 84484; 85025; 93005; 96361; 96374; 99284; 99285; J2405; J7120; Q9967